=== PATIENT | female | born 1980 | race American Indian/Alaskan Native ===

== ENCOUNTER 2018-03-15 19:13 | Emergency (ER) | payer MEDICARE ==
[2018-03-15 19:40] VITALS: BP 124/67
[2018-03-15] MEDS ORDERED: NORCO 7.5/325 PO ONE (22:28)
--- NOTE | 2018-03-15 22:32 | Emergency Department Report ---
ED Extremity Problem HPI - General Chief complaint: Extremity Injury, Lower Stated complaint: RIGHT KNEE PAIN Time Seen by Provider: 03/15/18 22:28 Source: patient, EMS Mode of arrival: Ambulatory Limitations: No Limitations - History of Present Illness Initial comments: 37-year-old -[place] female comes in from [place] voluntarily for med adjustment previous injury with torn right anterior cruciate ligament, torn lower right leg ligaments, scheduled surgery next Thursday for right knee torn anterior cruciate ligament patient is here today because she fell again. Patient reports that there was water on the floor at [place] and she was not aware of it and slipped and fail. She felt like she may have reinjured her previous. Patient reports that she just needs something for her pain and she has an appointment with orthopedist tomorrow. MD Complaint: extremity pain Location: right, knee History of Same: Yes -: Yes arthralgia Radiation: distal Severity scale (0 -10): 10 Quality: constant Consistency: constant Improves with: elevation (at an angle) Worsens with: other (full extension and walking) Associated Symptoms: denies other symptoms - Related Data Previous Rx's Medication Instructions Recorded Last Taken Type Ibuprofen [Motrin 600 MG tab] 600 mg PO Q8H PRN #30 tablet 03/15/18 Unknown Rx traMADol [Ultram 50 MG tab] 50 mg PO Q6HR PRN #12 tablet 03/15/18 Unknown Rx Allergies Allergy/AdvReac Type Severity Reaction Status Date / Time No Known Allergies Allergy Unverified 03/15/18 19:48 ED Review of Systems ROS: Stated complaint: RIGHT KNEE PAIN Other details as noted in HPI Musculoskeletal: arthralgia (right knee) ED Past Medical Hx - Past Medical History Hx Seizures: Yes Hx Psychiatric Treatment: (ADHD,BIPOLAR,DEPRESSION,DYSLEXIA) - Surgical History Additional Surgical History: LEFT KNEE X4,LEFT SHOULDER,2 , TUBILIGATION,CARPEL TUNNEL LEFT WRIST, - Social History Smoking Status: Never Smoker Substance Use Type: Marijuana - Medications Home Medications: Home Medications Medication Instructions Recorded Confirmed Last Taken Type Ibuprofen [Motrin 600 MG tab] 600 mg PO Q8H PRN #30 tablet 03/15/18 Unknown Rx traMADol [Ultram 50 MG tab] 50 mg PO Q6HR PRN #12 tablet 03/15/18 Unknown Rx ED Physical Exam - General Limitations: No Limitations General appearance: alert, in no apparent distress - Head Head exam: Present: atraumatic, normocephalic - Eye Eye exam: Present: EOMI - ENT ENT exam: Present: mucous membranes moist - Extremities Exam Extremities exam: Present: full ROM, tenderness, normal capillary refill. Absent: joint swelling - Expanded Lower Extremity Exam Right Upper Leg exam: Present: full ROM. Absent: tenderness, swelling Knee exam: Present: full ROM, tenderness, full knee extension (with pain ). Absent: swelling, dislocation, erythema Lower Leg exam: Present: full ROM, tenderness. Absent: swelling Ankle exam: Present: normal inspection, full ROM, tenderness Neuro vascular tendon exam: Present: no vascular compromise ED Course Vital Signs 03/15/18 03/15/18 19:20 19:33 Temperature 98.2 F 98.2 F Pulse Rate 63 60 Respiratory 18 18 Rate Blood Pressure 124/67 124/67 O2 Sat by Pulse 97 97 Oximetry ED Medical Decision Making - Medical Decision Making Patient has been evaluated by this provider in fast track. Patient's given [place] 7.5 mg for pain control Will discharge patient home on ibuprofen 800 mg every 8 hours when necessary as well as tramadol 50 mg by mouth every 6 hours when necessary Encourage patient to keep her appointment for tomorrow at the orthopedist. Patient verbalized understanding Critical care attestation.: If time is entered above; I have spent that time in minutes in the direct care of this critically ill patient, excluding procedure time. ED Disposition Clinical Impression: Fall Right knee pain Qualifiers: Chronicity: acute Qualified Code(s): M25.561 - Pain in right knee Disposition: - TO HOME OR SELFCARE Is pt being admited?: No Does the pt Need Aspirin: No Condition: Stable Instructions: Knee Pain (ED) Additional Instructions: Please take pain medication as needed. It's very important for you to keep your appointment with the orthopedist tomorrow. Continue ice therapy and elevation. Prescriptions: Ibuprofen [Motrin 600 MG tab] 600 mg PO Q8H PRN #30 tablet PRN Reason: Pain traMADol [Ultram 50 MG tab] 50 mg PO Q6HR PRN #12 tablet PRN Reason: Pain Referrals: PRIMARY CARE,MD [Primary Care Provider] - 3-5 Days your,Orthopedist [Other] - 3-5 Days Forms: Work/School Release Form(ED)
== END 2018-03-15 22:46 | disposition home or self-care (01) ==
LOC: ED 19:13
DX: M25.561 Pain in right knee (principal); F12.10 Cannabis abuse, uncomplicated
CPT/HCPCS: 99283